=== PATIENT | female | born 1960 | race Caucasian/White ===

== ENCOUNTER 2017-01-10 15:17 | Emergency (ER) | payer BC, OTHER ==
--- OUTSIDE RECORDS SUMMARY | 2017-01-10 15:52 | XMS REPORT | Continuity of Care Document ---
:1960 Author Organization [facility] ([facility]) Address [place] [address] Phone [phone] Care Team Providers Name Role Phone Efrain Kirkpatrick Primary Care Provider [phone] Source Comments This disclosure is being made pursuant to the Care Everywhere program, applicable federal and state laws, and may not contain all informaitonavailable regarding this patient.[facility] ([facility]) Active Allergies and Adverse Reactions Allergen Noted Date Severity Reactions Comments Prednisone 04/04/2013 Nausea & Vomiting Current Medications Prescription Sig. Disp. Refills Start Date End Date Status MULTIVITAMINS WITH IRON Take by mouth Active (MULTIVITAMIN WITH IRON daily. PO) levothyroxine 50 mcg Take 50 mcg by Active tablet mouth every morning before breakfast. donepezil 10 mg tablet Take 1 tablet (10 30 tablet 11 11/10/2016 Active mg total) by mouth at bedtime. Active Problems Problem Noted Date Early onset Alzheimer's dementia 09/07/2016 UTI (lower urinary tract infection) 04/05/2013 Hypothyroid 04/05/2013 Asthma 04/05/2013 Resolved Problems Problem Noted Date Resolved Date Migraines 04/05/2013 09/07/2016 Most Recent Encounters Date Type Specialty Providers Description 01/07/2017 Hospital Encounter Radiology Tara Butler MD Chief Comp: Patient Reported Reason For Visit 01/07/2017 Hospital Encounter Radiology Tara Butler MD Chief Comp: Patient Reported Reason For Visit 01/07/2017 Hospital Encounter Radiology Tara Butler MD Chief Comp: Patient Reported Reason For Visit 01/07/2017 Hospital Encounter Radiology Tara Butler MD Chief Comp: Patient Reported Reason For Visit 01/01/2017 Office Visit Neurology Kaleigh Ortega MD Dx: Early onset Alzheimer's disease with behavioral disturbance (Primary Dx) 11/10/2016 Refill Neurology Kaleigh Ortega MD Chief Comp: Request for Prescription 11/09/2016 Refill Neurology Kaleigh Ortega MD Dx: Early onset Alzheimer's dementia without behavioral disturbance (Primary Dx) Social History Tobacco Use Types Packs/Day Years Used Date Former Smoker 0.5 10 Smokeless Tobacco: Never Used Alcohol Use Drinks/Week oz/Week Comments No Last Filed Vital Signs Vital Sign Reading Time Taken Blood Pressure 146/67 01/01/2017 8:36 AM CDT Pulse 86 01/01/2017 8:36 AM CDT Temperature 36.8 C (98.3 F) 04/05/2013 12:45 PM CDT Respiratory Rate 20 04/05/2013 12:45 PM CDT Height 1.727 m (5' 8") 01/01/2017 8:36 AM CDT Weight 63 kg (138 lb 14.2 oz) 01/01/2017 8:36 AM CDT Body Mass Index 21.12 01/01/2017 8:36 AM CDT Oxygen Saturation 99% 09/04/2016 1:34 PM [facility] Plan of Care Date Type Specialty Providers Description 07/22/2017 Appointment Neurology Kaleigh Ortega MD Chief Comp: Patient [address] Reported Reason For Visit [place] [phone] (Fax) Health Maintenance Due Date Last Done Comments HCV Screening 1960 Hepatitis B Vaccine (1 of 3 - Primary Series) 1960 Tdap Vaccine 1969 Lipid Disorder Screening 1976 MMR Vaccine 1976 Td Vaccine 1976 Pneumococcal Vaccine (1 of 1 - PPSV23) 1977 Cervical Cancer Screening 1988 Mammogram 1998 Colonoscopy 08/15/2008 Influenza Vaccine: Seasonal (Season Ended) 2017 Results from Last 3 Months EXTERNAL MRI - STORE ONLY (01/07/2017 11:14 AM)Only the most recent of4 resultswithin the time period is included.
[2017-01-10 15:53] LABS: Hematocrit 40.9 % (37.0-47.0); Hemoglobin 13.9 gm/dL (12.5-16.0); Mean Cell Volume 85.7 fl (78-100); Mean Corpuscular Hemoglobin 29.1 pg (27-31); Mean Platelet Volume 9.1 fl (6.0-9.5); Neutrophil # 3.7 K/mm3 (1.3-6.0); Neutrophil % 66.9 % (42-75.0); Platelet Count 260 K/mm3 (150-450); Red Blood Count 4.77 M/mm3 (4.2-5.4); Red Cell Distribution Width 12.3 % (11.5-14.0); White Blood Count 5.6 K/mm3 (4.0-10.5)
--- NOTE | 2017-01-10 15:56 | ERNOTE ---
Dizziness ER Record Date of Service: 01/10/17 Presenting Symptoms: dizziness Time Seen by Provider: 01/10/17 15:26 Source: patient, family, RN notes reviewed Exam Limitations: dementia Allergies/Adverse Reactions: Allergies Allergy/AdvReac Type Severity Reaction Status Date / Time No Known Allergies Allergy Verified 01/10/17 15:23 Home Medications: HOME MEDICATIONS Donepezil HCl [Aricept] 10 mg PO DAILY 01/10/17 [Last Taken Unknown] Folic Acid 0.8 mg PO DAILY 01/10/17 [Last Taken Unknown] Levothyroxine Sodium [Synthroid] 100 mcg PO DAILY 01/10/17 [Last Taken Unknown] - History of Present Illness Narrative: Isabel is a 56 year old female brought to the ED by her for dizziness that began this morning. She describes it as a vague off balance feeling rather than a spinning/vertigo sensation. It is worse with movement. Her reports that she had similar episodes for most of the day about a week ago. This resolved without intervention. He reports that she has not eaten in over 24 hours. The last time she was dizzy, she had not eaten for some time either. The patient is a poor historian d/t Alzheimer's dementia. She was seen by her PCP for a routine visit a little over a week ago. Her denies any changes in her medications. Timing and Duration: still present, constant Noted on awakening:: Yes Associated Symptoms: Present: nausea, light headedness. Absent: hearing loss, ringing/roaring in ear, ear pain, vomiting, headache, weakness, numbness, sweating Sense of movement: Present: vague. Absent: spinning, falling Decreased ability to stand/walk:: Present: walks w/o assistance Usually:: Present: walks w/o assistance Modifying Factors - (Improves): Reports: nothing Modifying Factors - (Worsens): Reports: changing position Prior Treament: Reports: recently seen, treated by physician, similar symptoms before Review of Systems - Review of Systems Constitutional: Present: decreased activity level. Absent: recent illness, fever EYE: Absent: eye pain, vision changes ENT: Absent: ear pain, ear discharge, nose congestion, nasal drainage, sore throat Respiratory: Absent: shortness of breath, cough Cardiology: Absent: chest pain, syncope Gastrointestinal/Abdominal: Absent: nausea, vomiting, diarrhea Genitourinary: Present: no symptoms reported Musculoskeletal: Absent: muscle pain, joint pain Skin: Absent: rash, lesions Neurological: Present: dizziness/light-headedness. Absent: headache Endocrine: Present: no symptoms reported Hematologic/Lymphatic: Present: no symptoms reported Psych: Present: no symptoms reported - Patient's Past Medical History Patient History - Medical: Alzheimer's Disease, Anxiety, GERD, Hypothyroidism, Migraines Patient History - Cardiac/Respiratory: Asthma Patient History - Cancer: No Hx of Cancer Patient History - Surgical Procedures: Colonoscopy, EGD Patient History - Other: None LMP (females 10-50): Menopausal - Social History Living Situations: spouse Abuse History: No History of abuse Psych History: No pertinent hx Smoking Status: Former smoker Alcohol Use: none Drug Use: none Physical Exam - Physical Exam General Appearance: Present: wd/wn, alert, no apparent distress Eye Exam: Normal inspection: bilateral, PERRL: bilateral, EOMI: bilateral Ears, Nose, Throat: Present: cerumen impaction - right, normal pharynx. Absent : abnormal TM (L), nasal congestion, sinus pain/drainage, pharyngeal erythema Neck: Present: normal inspection, nontender, supple, full range of motion Respiratory: Present: no respiratory distress, normal breath sounds, no accessory muscle use, lungs clear Cardiovascular/Chest: Present: regular rate, rhythm, no murmur Extremity Exam: Present: normal inspection, normal range of motion, no edema Neurological Exam: Present: alert, no motor/sensory deficits, other - flat affect. Absent: oriented, normal mood/affect Skin Exam: Present: normal color, warm/dry ED Progress - Results and Orders Patient's Lab Results:: I have reviewed the patient's lab results. - Vital Signs Patient's Vital Signs:: I have reviewed the patient's vital signs. Vital Signs: Vital Signs 01/10/17 15:18 Temperature 36.5 C Pulse Rate 77 Respiratory 12 Rate Blood Pressure 157/89 O2 Sat by Pulse 99 Oximetry - Progress/Reassessment Chief Complaint: Dizziness Progress:: Unchanged Progress Note-Subjective: 01/10/17 16:46 Cerumen impaction removed from right ear with curette, no change in symptoms. TM pearly sanchez with normal landmarks. Labs unremarkable. Meclizine offered, patient declined. plans to have her seen by her PCP tomorrow. Departure Clinical Impression: Dizziness, nonspecific - Departure Disposition: Home Follow Up Needed Condition: Stable Instructions: Dizziness, [id number] Additional Instructions: Increase water intake Follow up with your doctor as planned Referrals: Efrain Vazquez MD [Primary Care Provider] -
[2017-01-10 16:06] LABS: Albumin * 3.8 gm/dl (3.4-5.0); Anion Gap 13.9 mmol/L (6.8-13.8); BUN/Creatinine Ratio 7.4 (9.0-21.6); Bilirubin, Total 0.4 mg/dL (0.0-1.1); Ca. Corrected For Albumin 9.2 mg/dL (8.4-10.2); Calcium * 9.4 mg/dL (7.9-10.9); Carbon Dioxide 27.8 mmol/L (24-32.6); Potassium 3.7 mmol/L (3.4-4.6); Total Protein 7.2 gm/dL (6.2-8.2)
[2017-01-10 16:49] VITALS: BP 149/88
== END 2017-01-10 16:45 | disposition home or self-care (01) ==
LOC: ER 15:17
PROC: 09C37ZZ Extirpation of Matter from Right External Auditory Canal, Via Natural or Artificial Opening (ICD-10-PCS; principal; 2017-01-10)
DX: R42 Dizziness and giddiness (principal); G30.9 Alzheimer's disease, unspecified; F02.80 Dementia in other diseases classified elsewhere, unspecified severity, without behavioral disturbance, psychotic disturbance, mood disturbance, and anxiety; E03.9 Hypothyroidism, unspecified